=== PATIENT | male | born 1995 | race Hispanic/Latino ===

== ENCOUNTER → 2022-06-27 | Day surgery (SDC) | payer OTHER ==
[~2022-06-27] MED LIST: GABAPENTIN100 MG PO; LACTATED RINGER'S 1,000 ML ONE; LIDOCAINE HCL 2% LOCAL INJ 5 ML SDV VIAL INJ ONE; MIDAZOLAM HCL 2 MG/2 ML VIAL ONE; PROPOFOL IV EMULSION 10 MG/ML 20 ML VIAL ONE; PROPOFOL IV EMULSION 50 ML IV ONE
[2022-06-27 15:10] VITALS: BP 116/78
== END | disposition home or self-care (01) ==
LOC: OR 12:30
PROVIDERS: ATTEND Internal Medicine Gastroenterology
DX: K29.50 Unspecified chronic gastritis without bleeding (principal); K29.80 Duodenitis without bleeding; K20.90 Esophagitis, unspecified without bleeding; K44.9 Diaphragmatic hernia without obstruction or gangrene; M54.30 Sciatica, unspecified side
CPT/HCPCS: 43239; C9113; J2001; J2250; J2704 ×2; J7121